=== PATIENT | male | born 1970 | race Caucasian/White ===

== ENCOUNTER → 2019-07-24 | Outpatient (CLI) | payer BC ==
--- NOTE | 2019-07-24 11:41 | Diagnostic Imaging Report ---
PROCEDURE: MRI lumbar spine. TECHNIQUE: Multiplanar, multisequence MRI of the lumbar spine was performed without contrast. INDICATION: Low back pain and lower extremity radiculopathy. COMPARISON: No prior studies are available for comparison. FINDINGS: Curvature and alignment of the lumbar spine is normal. Vertebral body heights are maintained. The marrow signal intensity is unremarkable. No compression fracture or geographic marrow lesion is seen. There is some disc desiccation and mild disc space narrowing at L4-L5 and L5-S1 levels compatible with degenerative disc disease. Conus is unremarkable at the L1-L2 level. T12-L1: The central canal is widely patent. The neural foramina are widely patent. L1-T2: Central canal and neural foramina are widely patent. L2-L3: The central canal and neural foramina are widely patent. L3-L4: Central canal and neural foramina are patent. L4-L5: There is some annular bulging with flattening of the ventral thecal sac. There is linear signal within the midline posterior annulus suggestive of a small annular tear. No focal disc protrusion is seen. Central canal remains patent. There is narrowing of the lateral recesses bilaterally. There is moderate left and mild right neural foraminal narrowing. L5-S1: There is a wide-based midline/left para midline disc bulge indenting the ventral thecal sac. Central canal remains patent, but there is significant narrowing of the left lateral recess. No significant neural foraminal narrowing is seen. Paraspinous tissues are unremarkable. IMPRESSION: Lower lumbar degenerative disc disease and disc bulging, as described with lateral recess and neural foraminal narrowing described level by level above. There is a prominent wide-based midline/left para-midline disc bulge at L5-S1, likely impinging upon the left S1 nerve root origin. Dictated by: Dictated on workstation # [id number]
== END ==
LOC: RAD 10:11
PROVIDERS: ATTEND Physician Assistant
DX: M51.36 Other intervertebral disc degeneration, lumbar region (principal); M54.16 Radiculopathy, lumbar region
CPT/HCPCS: 72148

== ENCOUNTER → 2020-04-30 | Outpatient (CLI) | payer BC ==
--- NOTE | 2020-04-30 10:55 | Diagnostic Imaging Report ---
EXAMINATION: Right elbow at 9:14 AM. INDICATION: Elbow pain. TECHNIQUE/COMPARISON: Three views were obtained. There are no prior studies available for comparison. FINDINGS: There is no fracture, dislocation, or acute bony abnormality of the elbow joint. The joint is fairly well-maintained and the posterior fat-pad is not elevated. The soft tissues are unremarkable. Incidental note is made of an orthopedic plate and screw fixation device securing a long-standing fracture of the distal humerus. IMPRESSION: 1. There is no evidence for an acute bony abnormality. 2. There are post surgical and post traumatic changes involving the distal humerus. Dictated by: Dictated on workstation # [id number]
== END ==
LOC: RAD FS 09:09
PROVIDERS: ATTEND Nurse Practitioner
DX: M25.521 Pain in right elbow (principal); M25.522 Pain in left elbow

== ENCOUNTER 2020-08-11 17:11 | Emergency (ER) | payer BC ==
[~2020-08-11] VITALS: Ht 185.4 cm; Wt 95.0 kg
[2020-08-11 18:03] LABS: BASOPHILS % (AUTO) 0 % (0-10); EOSINOPHILS % (AUTO) 0 % (0-10); HEMATOCRIT 39 % (40-54); HEMOGLOBIN 13.6 G/DL (13.3-17.7); LYMPHOCYTES # (AUTO) 1.3 X 10^3 (1.0-4.0); LYMPHOCYTES % (AUTO) 31 % (12-44); MEAN CORPUSCULAR HEMOGLOBIN 32 PG (25-34); MEAN CORPUSCULAR HGB CONC 35 G/DL (32-36); MEAN CORPUSCULAR VOLUME 91 FL (80-99); MEAN PLATELET VOLUME 8.7 FL (7.4-10.4); MONOCYTES # (AUTO) 0.4 X 10^3 (0.0-1.0); MONOCYTES % (AUTO) 8 % (0-12); NEUTROPHILS # (AUTO) 2.6 X 10^3 (1.8-7.8); NEUTROPHILS % (AUTO) 61 % (42-75); PLATELET COUNT 174 10^3/uL (130-400); WHITE BLOOD COUNT 4.4 10^3/uL (4.3-11.0)
[2020-08-11 18:18] LABS: ALANINE AMINOTRANSFERASE 33 U/L (0-55); ALBUMIN 3.6 GM/DL (3.2-4.5); ALKALINE PHOSPHATASE 84 U/L (40-136); BILIRUBIN,TOTAL 0.4 MG/DL (0.1-1.0); BUN/CREATININE RATIO 10; CARBON DIOXIDE 26 MMOL/L (21-32); CHLORIDE 101 MMOL/L (98-107); CREATININE SERUM 1.05 MG/DL (0.60-1.30); GFR ESTIMATED > 60; GLUCOSE 105 MG/DL (70-105); POTASSIUM 3.7 MMOL/L (3.6-5.0); SODIUM 137 MMOL/L (135-145); TOTAL PROTEIN 6.2 GM/DL (6.4-8.2)
--- NOTE | 2020-08-11 18:18 | Diagnostic Imaging Report ---
Clinical indication: Patient has increased shortness of breath, cough, chest pain. Possible Covid. Exam: Portable chest x-ray upright view. Comparisons: None. Findings: Of note, two densities overlying the upper mediastinal correlates with the patient's sweat shirt. Lungs/pleura: Hyperinflated lungs are noted. There are increased lung markings throughout both lungs which may be related to scarring. Lungs are clear. There is no pneumothorax. There is no pleural effusion. Mediastinum: Unremarkable. Pulmonary vasculature: Unremarkable. Heart: Unremarkable. Bones/extrathoracic soft tissue: Unremarkable. Impression: 1: There are hyperinflated lungs noted. This may be related to inspiratory effort, COPD or asthma. Clinical correlation is suggested. 2: There is no lung infiltrate, pneumothorax or pleural effusion seen. Dictated by: Dictated on workstation # [id number]
[2020-08-11] MEDS ORDERED: morphine INJ 10 MG/ML 1ML (SYR OR VIAL) IVP STA (18:22)
[2020-08-11] MEDS: NS IV 1000 ML 1,000 ML IV SCH ×2 (18:23→18:58)
[2020-08-11] MEDS ORDERED: NS IV 1000 ML 1,000 ML IV SCH (18:30)
--- NOTE | 2020-08-11 20:11 | ED General ---
General Chief Complaint: Respiratory Problems Stated Complaint: CHEST TIGHTNESS; COUGH; SOB Nursing Triage Note: Patient presents to ER reporting approx 9 day illness of bodyaches, congestion, fever, SOB, and discomfort in chest from coughing. 1 week ago Wednesday a Rapid swab testing was negative. Nursing Sepsis Screen: No Definite Risk History of Present Illness Date Seen by Provider: Aug 11, 2020 Time Seen by Provider: 17:00 Initial Comments Patient is a 50-year-old male who presents with 10 days of body aches, congestion, fever, his shortness of breath and Timing/Duration: 1/2 Hour Severity: Mild Modifying Factors: improves with Other Associated Systoms: Denies Symptoms, Cough Allergies and Home Medications Allergies Coded Allergies: No Known Drug Allergies (Unverified , 08/11/20) Patient Home Medication List Home Medication List Reviewed: Yes Review of Systems Review of Systems Constitutional: see HPI EENTM: see HPI Respiratory: see HPI Cardiovascular: see HPI Gastrointestinal: see HPI Genitourinary: see HPI Musculoskeletal: see HPI Skin: see HPI Psychiatric/Neurological: See HPI Hematologic/Lymphatic: See HPI Immunological/Allergic: see HPI Past Ljzpgrx-Ivcqso-Jhqrcg Hx Patient Social History Alcohol Use: Denies Use Smoking Status: Never a Smoker Recent Infectious Disease Expo: No Recent Hopitalizations: No Seasonal Allergies Seasonal Allergies: Yes Past Medical History Surgeries: Yes (Fx arm) Orthopedic Respiratory: No Cardiac: No Neurological: No Genitourinary: No Gastrointestinal: No Musculoskeletal: No Endocrine: No HEENT: No Cancer: No Psychosocial: No Integumentary: No Blood Disorders: No Physical Exam Vital Signs Vital Signs - First Documented 08/11/20 17:22 Temp 38.0 Pulse 93 Resp 19 B/P (MAP) 103/71 (82) Pulse Ox 94 O2 Delivery Room Air Capillary Refill : Less Than 3 Seconds Height, Weight, BMI Height: '" Weight: lbs. oz. kg; 27.00 BMI Method: General Appearance: Mild Distress, Other (Fatigued and weak appearing) Eyes: Bilateral Eye Normal Inspection, Bilateral Eye PERRL, Bilateral Eye EOMI HEENT: PERRL/EOMI, Normal ENT Inspection, Pharynx Normal Neck: Full Range of Motion, Non Tender, Supple Respiratory: Chest Non Tender, Lungs Clear Cardiovascular: Regular Rate, Rhythm Gastrointestinal: Non Tender, Soft Back: Normal Inspection Extremity: Normal Capillary Refill Neurologic/Psychiatric: Alert, Oriented x3 Reflexes: 4+ Bicep (R), 4+ Bicep (L), 4+ Tricep (R) Skin: Normal Color Focused Exam Sepsis Stage: Ruled Out Lactate Level 08/11/20 17:42: Lactic Acid Level 0.75 Lactic Acid Level Laboratory Tests Test 08/11/20 17:42 Lactic Acid Level 0.75 MMOL/L (0.50-2.00) Progress/Results/Core Measures Suspected Sepsis Recent Fever Within 48 Hours: No Infection Criteria Present: Suspected New Infection New/Unexplained Altered Menta: No Sepsis Screen: No Definite Risk SIRS Temperature: Pulse: 93 Respiratory Rate: 19 Laboratory Tests 08/11/20 17:42: White Blood Count 4.4 Blood Pressure 103 /71 Mean: 82 08/11/20 17:42: Lactic Acid Level 0.75 Laboratory Tests 08/11/20 17:42: Creatinine 1.05, Platelet Count 174, Total Bilirubin 0.4 Results/Orders Lab Results Laboratory Tests Test 08/11/20 17:42 Range/Units White Blood Count 4.4 4.3-11.0 10^3/uL Red Blood Count 4.31 L 4.35-5.85 10^6/uL Hemoglobin 13.6 13.3-17.7 G/DL Hematocrit 39 L 40-54 % Mean Corpuscular Volume 91 80-99 FL Mean Corpuscular Hemoglobin 32 25-34 PG Mean Corpuscular Hemoglobin Concent 35 32-36 G/DL Red Cell Distribution Width 11.9 10.0-14.5 % Platelet Count 174 130-400 10^3/uL Mean Platelet Volume 8.7 7.4-10.4 FL Immature Granulocyte % (Auto) 0 % Neutrophils (%) (Auto) 61 42-75 % Lymphocytes (%) (Auto) 31 12-44 % Monocytes (%) (Auto) 8 0-12 % Eosinophils (%) (Auto) 0 0-10 % Basophils (%) (Auto) 0 0-10 % Neutrophils # (Auto) 2.6 1.8-7.8 X 10^3 Lymphocytes # (Auto) 1.3 1.0-4.0 X 10^3 Monocytes # (Auto) 0.4 0.0-1.0 X 10^3 Eosinophils # (Auto) 0.0 0.0-0.3 10^3/uL Basophils # (Auto) 0.0 0.0-0.1 10^3/uL Immature Granulocyte # (Auto) 0.0 0.0-0.1 10^3/uL D-Dimer 0.49 0.00-0.49 UG/ML Sodium Level 137 135-145 MMOL/L Potassium Level 3.7 3.6-5.0 MMOL/L Chloride Level 101 98-107 MMOL/L Carbon Dioxide Level 26 21-32 MMOL/L Anion Gap 10 5-14 MMOL/L Blood Urea Nitrogen 11 7-18 MG/DL Creatinine 1.05 0.60-1.30 MG/DL Estimat Glomerular Filtration Rate > 60 BUN/Creatinine Ratio 10 Glucose Level 105 70-105 MG/DL Lactic Acid Level 0.75 0.50-2.00 MMOL/L Calcium Level 8.0 L 8.5-10.1 MG/DL Corrected Calcium 8.3 L 8.5-10.1 MG/DL Total Bilirubin 0.4 0.1-1.0 MG/DL Aspartate Amino Transf (AST/SGOT) 59 H 5-34 U/L Alanine Aminotransferase (ALT/SGPT) 33 0-55 U/L Alkaline Phosphatase 84 40-136 U/L C-Reactive Protein 0.97 H <0.50 MG/DL Total Protein 6.2 L 6.4-8.2 GM/DL Albumin 3.6 3.2-4.5 GM/DL My Orders Orders - SANDRA HOPPER DO Chest 1 View Ap/Pa Only (08/11/20 17:44) Cbc With Automated Diff (08/11/20 17:47) Comprehensive Metabolic Panel (08/11/20 17:47) Crp Fs (08/11/20 17:47) Continuous Ekg Monitoring (08/11/20 17:47) Arterial Blood Gas (08/11/20 17:47) Lactic Acid Analyzer (08/11/20 17:47) Ns Iv 1000 Ml (Sodium Chloride 0.9%) (08/11/20 18:00) Blood Culture (08/11/20 17:47) Dexamethasone Injection (Decadron Injec (08/11/20 18:30) Morphine Injection (Morphine Injection (08/11/20 18:22) Fibrin Degradation Products (08/11/20 18:22) Medications Given in ED Current Medications Medications Dose Ordered Sig/Say Route Start Time Stop Time Status Last Admin Dose Admin Dexamethasone Sodium Phosphate 10 mg ONCE ONCE IV 08/11/20 18:30 08/11/20 18:31 DC 08/11/20 18:30 10 MG Vital Signs/I&O 08/11/20 17:22 Temp 38.0 Pulse 93 Resp 19 B/P (MAP) 103/71 (82) Pulse Ox 94 O2 Delivery Room Air Capillary Refill : Less Than 3 Seconds Blood Pressure Mean: 82 Departure Communication (Admissions) Symptoms improved with treatment. No acute respiratory distress or failure. Labs reassuring. Will obtain Covid for PCR testing with continued watchful waiting supportive care with outpatient follow-up. Patient to continue Z-Bruce. Will place on steroids and pain medication. Return precautions reviewed. Impression Primary Impression: Viral syndrome Disposition: HOME, SELF-CARE Condition: Stable Transfer Method of Transfer: EMS Departure-Patient Inst. Decision time for Depature: 20:22 Referrals: NO,LOCAL PHYSICIAN (PCP/Family) Primary Care Physician Add. Discharge Instructions: Please go home and rest increase fluids and take newly prescribed medications as directed. Continue to take Zithromax. Follow-up with your PCP and health department for Covid results. Return to the ED if new or worsening symptoms All discharge instructions reviewed with patient and/or family. Voiced understanding. Scripts Hydrocodone/Acetaminophen (Hydrocodone-Acetamin 5-325 mg) 1 Each Tablet 1 TAB PO Q4H PRN for PAIN-MODERATE (5-7), #10 TAB Prov: SANDRA HOPPER DO 08/11/20 Prednisone (Prednisone) 50 Mg Tab 50 MG PO DAILY, #7 TAB Prov: SANDRA HOPPER DO 08/11/20 SANDRA HOPPER DO Aug 11, 2020 20:10
[2020-08-11] MEDS ORDERED: ACHD5005 PO (20:27)
[2020-08-11] MEDS ORDERED: PRD50T PO (20:27)
[2020-08-11] MEDS ORDERED: RX-ALBUTEROL INHALER (VENTOLIN HFA) 18 GM IH STA (20:32)
[2020-08-11] MEDS ORDERED: RT-ALBUINH IH (20:33)
[2020-08-11 20:45] VITALS: BP 127/86
== END 2020-08-11 20:45 | disposition home or self-care (01) ==
LOC: EDUNIT# 17:11 → ER FS 17:15
DX: U07.1 COVID-19 (principal)
CPT/HCPCS: 36415; 71045; 80053; 83605; 85025; 85379; 86141; 87040; 99284; U0002; 87635; 93005

== ENCOUNTER → 2021-08-07 | Outpatient (CLI) | payer BC ==
[~2021-08-07] MED LIST: ACHD5005 PO; PRD50T PO; RT-ALBUINH IH
[2021-08-07 09:28] LABS: HEMATOCRIT 43 % (40-54); HEMOGLOBIN 14.7 g/dL (13.3-17.7); MEAN CORPUSCULAR HEMOGLOBIN 31 pg (25-34); MEAN CORPUSCULAR HGB CONC 35 g/dL (32-36); MEAN CORPUSCULAR VOLUME 91 fL (80-99); MEAN PLATELET VOLUME 8.7 fL (9.0-12.2); PLATELET COUNT 279 10^3/uL (130-400); WHITE BLOOD COUNT 5.1 10^3/uL (4.3-11.0)
[2021-08-07 10:00] LABS: POTASSIUM 4.1 MMOL/L (3.6-5.0)
[2021-08-07 10:01] LABS: ALBUMIN 4.4 GM/DL (3.2-4.5); BILIRUBIN,TOTAL 0.7 MG/DL (0.1-1.0); CALCIUM 9.3 MG/DL (8.5-10.1); CREATININE SERUM 0.92 MG/DL (0.60-1.30); TOTAL PROTEIN 7.1 GM/DL (6.4-8.2)
[2021-08-11 14:59] LABS: TSH (THYROID ANALYZER) 0.45 UIU/ML (0.35-4.94)
== END ==
LOC: LAB FS 08:34
PROVIDERS: ATTEND Emergency Medicine
DX: Z00.01 Encounter for general adult medical examination with abnormal findings (principal); K92.1 Melena; R10.13 Epigastric pain
CPT/HCPCS: 36415; 80053; 84443; 85027; 86677

== ENCOUNTER 2021-09-08 05:36 | Outpatient (CLI) | payer BC ==
[~2021-09-08] VITALS: Ht 182.9 cm; Wt 92.5 kg
[2021-09-08] MEDS ORDERED: PANT40TA52 PO (15:17)
[2021-09-08] MEDS ORDERED: SUCR1TAB PO (15:17)
== END 2021-09-08 15:18 ==
LOC: PREOP 05:36
PROVIDERS: ATTEND Surgery
DX: Z01.818 Encounter for other preprocedural examination (principal)

== ENCOUNTER 2021-09-16 10:20 | Day surgery (SDC) | payer BC ==
[~2021-09-16] VITALS: Ht 183 cm; Wt 92.5 kg
[~2021-09-16 10:20] MED LIST changes: +PANT40TA52 PO; +SUCR1TAB PO
[2021-09-16] MEDS ORDERED: LACTATED RINGERS 1,000 ML IV STA (10:21)
[2021-09-16] MEDS ORDERED: LACTATED RINGERS 1,000 ML IV ONE (10:28)
[2021-09-16] MEDS ORDERED: HURRICAINE EXT TUBE (BENZOCAINE) XX PRN (10:30)
[2021-09-16] MEDS ORDERED: PROPOFOL INJECTION 50 ML IV ONE (10:40)
--- NOTE | 2021-09-16 10:40 | Progress Note-Pre Operative ---
Pre-Operative Progress Note H&P Reviewed The H&P was reviewed, patient examined and no changes noted. Date Seen by Provider: Sep 16, 2021 Time Seen by Provider: 10:40 Date H&P Reviewed: Sep 16, 2021 Time H&P Reviewed: 10:40 Pre-Operative Diagnosis: epigastric pain, screening colonoscopy ALISE KENDRICK DO Sep 16, 2021 10:40
[2021-09-16 10:44] VITALS: BP 144/87
[2021-09-16 11:30] VITALS: BP 120/82
--- NOTE | 2021-09-16 11:32 | Progress Note-Post Operative ---
Post-Operative Progess Note Surgeon (s)/Diet Counselor (s) Surgeon ALISE KEDNRICK DO Diet Counselor: na Pre-Operative Diagnosis epigastric pain, screening colonoscopy Post-Operative Diagnosis gastric polyp, diverticulosis, colon polyps Procedure & Operative Findings Date of Procedure 09/16/21 Procedure Performed/Findings egd c biopsies, colonoscopy c hot bx polypectomy x 3 Anesthesia Type per hydroelectric operator Estimated Blood Loss Estimated blood loss (mL): none Specimens/Packing Specimens Removed antrum, ge, colon polyps ALISE KENDRICK DO Sep 16, 2021 11:32
[2021-09-16 11:35] VITALS: BP 120/83
--- NOTE | 2021-09-16 11:35 | Discharge Inst-Simple/Standard ---
Discharge Inst-Standard Patient Instructions/Follow Up Plan of Care/Instructions/FU: 2 weeks Malena Activity as Tolerated: Yes Discharge Diet: Regular Diet (high fiber) ALISE KENDRICK DO Sep 16, 2021 11:35
[2021-09-16 11:40] VITALS: BP 118/81
--- NOTE | 2021-09-16 12:05 | Anesthesia-General Post-Op ---
MAC Patient Condition Mental Status/LOC: Same as Preop Cardiovascular: Satisfactory Nausea/Vomiting: Absent Respiratory: Satisfactory Pain: Controlled Complications: Absent Post Op Complications Complications None Follow Up Care/Instructions Patient Instructions None needed. Anesthesiology Discharge Order Discharge Order Patient is doing well, no complaints, stable vital signs, no apparent adverse anesthesia problems. No complications reported per nursing. SHEA BRUNER CRNA Sep 16, 2021 12:04
--- NOTE | 2021-09-16 15:52 | OPERATIVE REPORT ---
DATE OF SERVICE: 09/16/2021 PREOPERATIVE DIAGNOSES: Epigastric abdominal pain, screening colonoscopy. POSTOPERATIVE DIAGNOSES: Gastric polyps, diverticulosis, colon polyps. PROCEDURE: EGD with biopsies, colonoscopy with hot biopsy polypectomy x3. SURGEON: Alise Guy DO ANESTHESIA: Per TANGLED YARN SPOOL STRAIGHTENER. ESTIMATED BLOOD LOSS: None. COMPLICATIONS: None. SPECIMENS: Antrum, GE junction, colon polyps. INDICATIONS: The patient is a 51-year-old male with epigastric abdominal pain needing screening colonoscopy. He understands risks and benefits of procedures and wished to proceed. Consent was signed in the chart. DESCRIPTION OF PROCEDURE: The patient was taken to the endoscopy suite, placed in left lateral recumbent position. Timeout was performed. Scope was inserted in mouth, down the esophagus, stomach and into the duodenum without difficulty. No polyps, masses or ulcerations within the duodenum. Scope was slowly retracted back into the stomach. Some small benign-appearing polyps. No masses or ulcerations, no erythematous changes. Biopsy of the antrum was obtained. Scope was retroflexed noting no other pathology. Scope was returned to its normal position, slowly withdrawn to distal esophagus, some slight erythematous changes, no polyps, masses or ulcerations. Biopsy of the GE junction was obtained. Scope was slowly retracted back until completely removed. Digital rectal exam was performed. No palpable polyps, masses or ulcerations. Scope was inserted in the rectum and advanced all the way to cecum with minimal difficulty. Prep was adequate. Scope was slowly retracted back. No polyps, masses or ulcerations within the cecum, ascending and transverse colon. Descending colon, three small polyps were present, which hot biopsy polypectomy was performed. Scope was continuously retracted back into the sigmoid having minimal amount of diverticulosis present. No polyps, masses or ulcerations. Scope was brought down into the rectum, where it was also retroflexed noting no other pathology. Scope was returned to its normal position, slowly withdrawn until completely removed. The patient tolerated the procedure well without any complications, taken to recovery room in stable condition. RECOMMENDATIONS: The patient will recommend high fiber diet. We will follow up on pathology in a couple of weeks to discuss pathology results. Continue on current medications for his epigastric abdominal pain until biopsies return. The patient will need repeat colonoscopy in 5 years. Job ID: [id number] DocumentID: [id number] Dictated Date: 09/16/2021 11:40:15 Construction Operations Manager Date: 09/16/2021 15:52:26 Dictated By: ALISE GUY DO
== END 2021-09-16 12:18 | disposition home or self-care (01) ==
LOC: ENDO 10:20
PROVIDERS: ATTEND Surgery
DX: Z12.11 Encounter for screening for malignant neoplasm of colon (principal); D12.4 Benign neoplasm of descending colon; K57.30 Diverticulosis of large intestine without perforation or abscess without bleeding; K31.7 Polyp of stomach and duodenum; K22.9 Disease of esophagus, unspecified
CPT/HCPCS: 88305